=== PATIENT | female | born 1965 | race American Indian/Alaskan Native ===

== ENCOUNTER 2017-10-08 06:29 | Emergency (ER) | payer SELFPAY ==
[2017-10-08] MEDS ORDERED: NORCO 5/325 PO ONE ×2 (10:56→12:53)
[2017-10-08] MEDS ORDERED: NORVASC PO ONE ×2 (10:57→12:53)
--- NOTE | 2017-10-08 10:58 | Emergency Department Report ---
ED Back Pain/Injury HPI - General Chief Complaint: Back Pain/Injury Stated Complaint: BACK PAIN Time Seen by Provider: 10/08/17 10:34 Source: patient Limitations: No Limitations - History of Present Illness Initial Comments: 52-year-old female past medical history smoker, hypertension, uterine fibroids presents with complaint of 4-5 days of lower back pain. Denies fevers chills nausea vomiting. Patient awake alert and oriented 3. States pain is in her lower back region denies trauma denies rash denies any falls. Patient is ambulatory without assistance. Denies paresthesias. MD Complaint: back pain Onset/Timin -: days(s) Similar Symptoms Previously: No Severity: moderate Severity scale (0 -10): 6 Quality: aching Consistency: constant Improves With: none Worsens With: none Associated Symptoms: denies other symptoms - Related Data Previous Rx's Medication Instructions Recorded Last Taken Type Acetaminophen [Acetaminophen TAB] 500 mg PO Q6HR PRN #30 tablet 10/08/17 Unknown Rx Cyclobenzaprine [Flexeril] 10 mg PO TID PRN #12 tablet 10/08/17 Unknown Rx amLODIPine [Norvasc] 10 mg PO DAILY #30 tab 10/08/17 Unknown Rx Allergies Allergy/AdvReac Type Severity Reaction Status Date / Time No Known Allergies Allergy Unverified 10/08/17 06:46 ED Review of Systems ROS: Stated complaint: BACK PAIN Other details as noted in HPI Constitutional: denies: chills, fever Eyes: denies: eye pain, eye discharge, vision change ENT: denies: ear pain, throat pain Respiratory: denies: cough, shortness of breath, wheezing Cardiovascular: denies: chest pain, palpitations Endocrine: no symptoms reported Gastrointestinal: denies: abdominal pain, nausea, diarrhea Genitourinary: denies: urgency, dysuria, discharge Musculoskeletal: as per HPI, back pain. denies: joint swelling, arthralgia Skin: denies: rash, lesions Neurological: denies: headache, weakness, paresthesias Psychiatric: denies: anxiety, depression Hematological/Lymphatic: denies: easy bleeding, easy bruising ED Past Medical Hx - Past Medical History Previous Medical History?: Yes Hx Hypertension: Yes ("no longer on meds, it got better") - Surgical History Past Surgical History?: Yes Additional Surgical History: x1 - Social History Smoking Status: Never Smoker - Medications Home Medications: Home Medications Medication Instructions Recorded Confirmed Last Taken Type Acetaminophen [Acetaminophen TAB] 500 mg PO Q6HR PRN #30 tablet 10/08/17 Unknown Rx Cyclobenzaprine [Flexeril] 10 mg PO TID PRN #12 tablet 10/08/17 Unknown Rx amLODIPine [Norvasc] 10 mg PO DAILY #30 tab 10/08/17 Unknown Rx ED Physical Exam - General Limitations: No Limitations General appearance: alert, in no apparent distress - Head Head exam: Present: atraumatic, normocephalic - Eye Eye exam: Present: normal appearance, PERRL, EOMI - ENT ENT exam: Present: mucous membranes moist - Neck Neck exam: Present: normal inspection, full ROM - Respiratory Respiratory exam: Present: normal lung sounds bilaterally. Absent: respiratory distress - Cardiovascular Cardiovascular Exam: Present: regular rate, normal rhythm. Absent: systolic murmur, diastolic murmur, rubs, gallop - GI/Abdominal GI/Abdominal exam: Present: soft, normal bowel sounds - Extremities Exam Extremities exam: Present: normal inspection - Back Exam Back exam: Present: normal inspection - Neurological Exam Neurological exam: Present: alert, oriented X3, CN II-XII intact, normal gait - Psychiatric Psychiatric exam: Present: normal affect, normal mood - Skin Skin exam: Present: warm, dry, intact, normal color. Absent: rash ED Course Vital Signs 10/08/17 10/08/17 10/08/17 06:37 10:44 12:52 Temperature 98.9 F Pulse Rate 93 H 88 79 Respiratory 20 20 20 Rate Blood Pressure 218/127 Blood Pressure 170/106 198/125 [Right] O2 Sat by Pulse 97 97 97 Oximetry ED Medical Decision Making - Medical Decision Making A/P: lower back pain, Musculoskeletal back pain, spondylolisthesis, asymptomatic hypertension, leaving agaisnt medical advice 1-x-ray consistent with degenerative changes lumbar spine 2- urinalysis unremarkable 3-I advised patient that it is important for her to actually take her depression medicine. Patient states that she self discontinued her blood pressure medicine 3 months ago. She did not believe she needed it any longer. Patient advised to follow up with primary care doctor. I referred patient. The patient denies shortness of breath chest pain paresthesias dizziness headache nausea or palpitations. Awake alert and oriented 3. Denies upper or lower extremity paresthesias. Denies bladder or bowel incontinence. No clinical signs of cauda equina. Strength 5 out of 5 bilateral lower extremities. 4- vital signs improved for discharge. I educated patient on high blood pressure. 5as patient's blood pressure was elevated before discharge I ordered more pain medicine and additional dose of Norvasc EKG and blood work. Patient refused to have EKG done is requesting a prescription for pain medicine and wished to leave. I explained to the patient that I am concerned about her elevated hypertension. I advised patient that she is at risk of permanent disability and potentially to cardiac disease stroke or organ failure secondary to hypertension. Patient stated that she understood these warnings but still wished to leave. Conversation witnessed by travel coordinator and nursing at bedside. Patient states she understands my concern but does not wish to be worked up in the ED further for her own personal reasons. I advised the patient to follow up with her primary doctor soon as possible and provided her with a prescription for amlodipine 10 mg. Tylenol when necessary for pain Critical care attestation.: If time is entered above; I have spent that time in minutes in the direct care of this critically ill patient, excluding procedure time. ED Disposition Clinical Impression: Asymptomatic hypertension, Left against medical advice Lower back pain Qualifiers: Chronicity: acute Back pain laterality: unspecified Sciatica presence: without sciatica Qualified Code(s): M54.5 - Low back pain Disposition: - TO HOME OR SELFCARE Is pt being admited?: No Does the pt Need Aspirin: No Condition: Stable Instructions: Acute Low Back Pain (ED), Low Sodium Diet (ED), Hypertension (ED) , Against Medical Advice (ED) Prescriptions: Acetaminophen [Acetaminophen TAB] 500 mg PO Q6HR PRN #30 tablet PRN Reason: Pain amLODIPine [Norvasc] 10 mg PO DAILY #30 tab Cyclobenzaprine [Flexeril] 10 mg PO TID PRN #12 tablet PRN Reason: Muscle Spasm Referrals: [facility] [Outside] - 3-5 Days [facility] [Outside] - 3-5 Days [facility] [Provider Group] - 3-5 Days Forms: AMA Form Time of Disposition: 12:49
[2017-10-08 11:15] LABS: Bacteria,Urine 4+ /HPF (Negative); Bilirubin,Urine NEG (Negative); Blood,Urine SM (Negative); Ketones,Urine NEG (Negative); Leukocyte Esterase,Urine SM (Negative); Mucus,Urine FEW /HPF; Nitrite,Urine NEG (Negative); Protein,Urine <15 mg/dL mg/dL (Negative); Urobilinogen,Urine < 2.0 mg/dL (<2.0)
--- NOTE | 2017-10-08 12:17 | XRay Report ---
LUMBOSACRAL SPINE, 3 VIEWS: History: Back pain Findings: The vertebral bodies, disk spaces and posterior elements are intact. No compression deformity or malalignment. There is moderate to severe facet arthropathy at the lowest 3 levels. The SI joints are symmetric and unremarkable. Impression: Lumbar spondylosis.
[2017-10-08 12:53] VITALS: BP 198/125
[2017-10-08] MEDS ORDERED: ZOFRAN ODT PO ONE (12:53)
== END 2017-10-08 13:14 | disposition left against medical advice (07) ==
LOC: ED 06:29
DX: M54.5 Low back pain (principal); I10 Essential (primary) hypertension; D25.9 Leiomyoma of uterus, unspecified
CPT/HCPCS: 72100; 81001; Q0162